=== PATIENT | female | born 1955 | race Caucasian/White ===

== ENCOUNTER 2020-04-14 15:43 | Emergency (ER) | payer OTHER ==
[~2020-04-14 15:43] MED LIST: 0.9% SODIUM CHLORIDE 1000 ML IV BAG IV ONE
[2020-04-14 16:09] LABS: BASOPHILS % (AUTO) 0.3 % (0.0-5.0); EOSINOPHILS % (AUTO) 0.1 % (0.0-8.0); LYMPHOCYTES % (AUTO) 11.4 % (21.0-51.0); MEAN CORPUSCULAR HGB CONC 34.1 g/dL (32.0-36.0); MEAN CORPUSCULAR VOLUME 102.8 fL (79-99); MONOCYTES % (AUTO) 7.3 % (3.0-13.0); NEUTROPHILS % (AUTO) 80.5 % (40.0-77.0); PLATELET COUNT (AUTO) 38 K/uL (130-400); RED CELL DISTRIBUTION WIDTH 14.5 % (11.0-15.5); WHITE BLOOD COUNT (AUTO) 7.6 K/uL (4.8-10.8)
[2020-04-14 16:20] LABS: CREATININE 0.9 mg/dL (0.5-1.5)
[2020-04-14 16:21] LABS: INR 1.38 (0.85-1.15); PARTIAL THROMBOPLASTIN TIME 36.1 SEC (26.3-35.5); PROTHROMBIN TIME 14.7 SEC (9.6-11.6)
[2020-04-14 16:24] LABS: ALBUMIN 2.3 g/dL (3.5-5.0); BILIRUBIN,TOTAL 2.8 mg/dL (0.2-1.0); TOTAL PROTEIN, SERUM 7.8 g/dL (6.0-8.3)
[2020-04-14] MEDS ORDERED: ONDANSETRON HCL 4 MG/2 ML VIAL ONE (16:32)
[2020-04-14] MEDS ORDERED: ACETAMINOPHEN EXTRA STRENGTH 500 MG TABLET ONE (16:33)
[2020-04-14 16:40] LABS: APPEARANCE,URINE CLOUDY (CLEAR); BILIRUBIN,URINE MODERATE (NEGATIVE); COLOR,URINE ORANGE (YELLOW); GLUCOSE, URINE (UA) NEGATIVE (NEGATIVE); KETONES,URINE NEGATIVE (NEGATIVE); LEUKOCYTE ESTERASE ,URINE TRACE (NEGATIVE); NITRATE,URINE NEGATIVE (NEGATIVE); OCCULT BLOOD,URINE LARGE (NEGATIVE); PH,URINE 6.5 (5.0-8.0); PROTEIN,URINE 100 mg/dL (NEGATIVE)
[2020-04-14 17:04] LABS: BACTERIA,URINE Few /HPF (None Seen); RBC,URINE >100 /HPF (0-1); SQUAMOUS EPITHELIAL CELL,UR Rare /HPF (0-2)
== END 2020-04-14 20:59 | disposition home or self-care (01) ==
LOC: EDH 15:43
DX: E86.0 Dehydration (principal); K74.60 Unspecified cirrhosis of liver; R51 Headache; R11.10 Vomiting, unspecified; R31.9 Hematuria, unspecified; D69.59 Other secondary thrombocytopenia; Z20.828 Contact with and (suspected) exposure to other viral communicable diseases; R26.89 Other abnormalities of gait and mobility
CPT/HCPCS: 36415; 70450; 70544; 70551; 71045; 80053; 81001; 82140; 82550; 83690; 83880; 84484; 85025; 85610; 85730; 87426; 93005; 96361; 96374; 99285; J2405; J7030; U0003

== ENCOUNTER 2020-04-19 15:32 | Emergency (ER) | payer OTHER ==
[2020-04-19 16:05] LABS: APPEARANCE,URINE Turbid (CLEAR); BILIRUBIN,URINE Small (NEGATIVE); COLOR,URINE Dark Yellow (YELLOW); GLUCOSE, URINE (UA) Negative (NEGATIVE); KETONES,URINE Negative (NEGATIVE); LEUKOCYTE ESTERASE ,URINE Large (NEGATIVE); NITRATE,URINE Positive (NEGATIVE); OCCULT BLOOD,URINE Large (NEGATIVE); PROTEIN,URINE 300 mg/dL (NEGATIVE)
[2020-04-19 16:18] LABS: BACTERIA,URINE Few /HPF (None Seen); MUCUS,URINE Few LPF (None Seen); SQUAMOUS EPITHELIAL CELL,UR 0-2 /HPF (0-2); WBC,URINE 51-100 /HPF (0-1)
[2020-04-19] MEDS ORDERED: LIDOCAINE HCL 1% 20 ML VIAL ONE (16:30)
[2020-04-19] MEDS ORDERED: CEFTRIAXONE SODIUM 1 GM ONE (16:31)
== END 2020-04-19 16:50 | disposition home or self-care (01) ==
LOC: EDH 15:32
DX: N39.0 Urinary tract infection, site not specified (principal); R03.0 Elevated blood-pressure reading, without diagnosis of hypertension
CPT/HCPCS: 81001; 87077; 87088; 87186; 96372; 99283; J0696

== ENCOUNTER → 2021-01-22 | Outpatient (CLI) | payer OTHER | END | disposition home or self-care (01) | LOC: RAH 08:50 | PROVIDERS: ATTEND Internal Medicine Gastroenterology | DX: K80.20 Calculus of gallbladder without cholecystitis without obstruction (principal); K74.60 Unspecified cirrhosis of liver | CPT/HCPCS: 76700; 93975 ==

== ENCOUNTER → 2023-01-27 | Outpatient (CLI) | payer OTHER | END | disposition home or self-care (01) | LOC: RAH 14:41 | PROVIDERS: ATTEND Internal Medicine | DX: S89.91XA Unspecified injury of right lower leg, initial encounter (principal); X58.XXXA Exposure to other specified factors, initial encounter; Y93.89 Activity, other specified; Y92.89 Other specified places as the place of occurrence of the external cause; Y99.8 Other external cause status | CPT/HCPCS: 73562 ==

== ENCOUNTER → 2023-02-10 | Outpatient (CLI) | payer OTHER | END | disposition home or self-care (01) | LOC: RAH 10:43 | PROVIDERS: ATTEND Internal Medicine | DX: I87.2 Venous insufficiency (chronic) (peripheral) (principal) | CPT/HCPCS: 93970 ==

== ENCOUNTER → 2023-03-03 | Outpatient (CLI) | payer OTHER | END | disposition home or self-care (01) | LOC: RAH 09:16 | PROVIDERS: ATTEND Internal Medicine | DX: M17.0 Bilateral primary osteoarthritis of knee (principal); M16.12 Unilateral primary osteoarthritis, left hip; M85.88 Other specified disorders of bone density and structure, other site | CPT/HCPCS: 73502; 73562 ==

== ENCOUNTER 2024-09-17 06:34 | Observation (INO) | payer OTHER ==
[2024-09-11 10:54] LABS: BASOPHILS # (AUTO) 0.03 K/uL (0.00-0.20); BASOPHILS % (AUTO) 1.1 % (0.0-5.0); EOSINOPHILS # (AUTO) 0.07 K/uL (0.00-0.70); EOSINOPHILS % (AUTO) 2.7 % (0.0-8.0); HEMATOCRIT 37.7 % (36-48); IMMATURE GRANULOCYTE ABSOLUTE 0.01 K/uL (0-1); LYMPHOCYTES # (AUTO) 0.5 K/uL (1.0-4.8); LYMPHOCYTES % (AUTO) 18.3 % (21.0-51.0); MEAN CORPUSCULAR HEMOGLOBIN 32.5 pg (27.0-33.0); MEAN CORPUSCULAR HGB CONC 33.4 g/dL (32.0-36.0); MEAN CORPUSCULAR VOLUME 97.2 fL (79-99); MONOCYTES # (AUTO) 0.2 K/uL (0.1-1.0); NEUTROPHILS # (AUTO) 1.8 K/uL (1.8-7.7); NEUTROPHILS % (AUTO) 69.5 % (40.0-77.0); PLATELET COUNT (AUTO) 61 K/uL (130-400); RED BLOOD CELL COUNT(AUTO) 3.88 MIL/uL (4.00-5.50); RED CELL DISTRIBUTION WIDTH 13.5 % (11.0-15.5); WHITE BLOOD COUNT (AUTO) 2.6 K/uL (4.8-10.8)
[2024-09-11 11:01] VITALS: BP 135/56; PULSE 65; RESP 18; TEMP 97.7
--- NOTE | 2024-09-11 11:01 | EKG ---
[facility] Test Date: 2024-09-11 Test Time: 11:35:05 Pat Name: JOSE LENNON Department: [facility] Room: Gender: F Skimmer Reverberatory: [id number] : 1955 Requested By: PEYMAN GARCIA Order Number: [id number] Reading MD: Kaley Montelongo Measurements Intervals Dixon Rate: 64 P: -7 WA: 184 QRS: -21 QRSD: 91 T: 25 QT: 409 QTc: 424 Interpretive Statements Sinus rhythm Compared to ECG 04/14/2020 16:17:57 No significant changes Electronically Signed On 09-12-2024 17:07:04 SOCCER COMMENTATOR by Kaley Montelongo Please click the below link to view image of tracing.
[2024-09-11 11:12] LABS: ALBUMIN 3.4 g/dL (3.5-5.0); CREATININE 0.8 mg/dL (0.5-1.0); POTASSIUM 4.2 mmol/L (3.5-5.1)
[2024-09-11 12:31] LABS: INR 1.1 (0.85-1.15); PROTHROMBIN TIME 12.2 SEC (9.6-11.6)
[2024-09-11 12:32] LABS: PARTIAL THROMBOPLASTIN TIME 30.2 SEC (26.3-35.5)
[2024-09-11 12:58] LABS: BAND NEUTROPHILS % (MANUAL) 2 % (0-2); EOSINOPHILS % (MANUAL) 4 % (1-6); LYMPHOCYTES % (MANUAL) 18 % (22-44); MAN.DIFF COMMENT-IMPRESSION MANUAL DIFFERENTIAL; MONOCYTES % (MANUAL) 6 % (2-9); PLATELET MORPHOLOGY COMMENT MARKED DECREASE; SEGMENTED NEUTROPHILS % 70 % (40-70); TOTAL CELLS COUNTED 50; WBC MORPHOLOGY TOXIC GRANULATION 1+
--- NOTE | 2024-09-14 13:23 | NUR ---
report dr meredith reviewed cbc. new orders given for type and crossmatch of 2 prbc and one unit of packed platelets dos.
[2024-09-17] VITALS (34 sets, daily range): BP systolic 121–160; BP diastolic 55–112; PULSE 57–80; RESP 13–20; TEMP 97.3–98.4; O2SAT 95–97
[~2024-09-17] VITALS: Ht 175.3 cm; Wt 104.1 kg
[~2024-09-17 06:34] MED LIST changes: -0.9% SODIUM CHLORIDE 1000 ML IV BAG IV ONE; +ASCO100031 PO; +CHOL500051 PO; +CYAN25002 SL; +FOLI0.8T3 PO; +HC2530O TP; +HYDR25SU7 RC; +LACT-441 PO; +MILK175T2 PO; +OMEP40CA21 PO; +POTA99CA PO; +PRIMROSE; +TRIAM15CRM TP
[2024-09-17] MEDS ORDERED: LIDOCAINE PF 100MG/5ML (2%) SYRINGE 5ML ONE ×2 (07:17→09:19)
[2024-09-17] MEDS ORDERED: SUCCINYLCHOLINE CHLORIDE 20 MG/ML 10 ML VIAL ONE ×2 (07:17→09:20)
[2024-09-17] MEDS ORDERED: FENTanyl CITRate PF 50 MCG/1 ML 2ML VIAL ONE ×3 (07:18→09:50)
[2024-09-17] MEDS ORDERED: rocuRONium bROMide 10MG/1ML 5ML VL ONE (07:18)
[2024-09-17] MEDS ORDERED: NEOSTIGMINE METHYLSULFATE 1MG/ML IV ONE (07:18)
[2024-09-17] MEDS ORDERED: ondanSETRON 4MG INJ ONE ×2 (07:18→09:51)
[2024-09-17] MEDS ORDERED: dexaMETHasone SOD PHOSPHATE 10MG/ML 1ML VIAL ONE ×2 (07:18→09:20)
[2024-09-17] MEDS ORDERED: proPOFol 10 MG/ML 20ML VIAL IV ONE (07:18)
[2024-09-17] MEDS ORDERED: GLYCOPYRROLATE 0.2 MG/ML 5 ML VIAL ONE (07:18)
[2024-09-17] MEDS ORDERED: MIDAZOLAM HCL 1 MG/ML 2ML VIAL ONE (07:21)
[2024-09-17] MEDS ORDERED: ROPivacaine 0.5% 5MG/ML 30ML ONE ×3 (07:25→09:46)
[2024-09-17] MEDS ORDERED: ketaMINE 50MG/ML SYRINGE 50 MG/ML DISP.SYRIN ONE (07:46)
[2024-09-17] MEDS ORDERED: ALBUMIN (HUMAN) 5% 250 ML IV ONE (07:47)
[2024-09-17] MEDS: LACTATED RINGERS 1000ML 1,000 ML IV ONE (07:55)
[2024-09-17] MEDS: ceFAZolin SODIUM 2 GM VIAL ONE (07:55)
[2024-09-17] MEDS ORDERED: TRANEXAMIC ACID 1000MG/10ML ONE (08:36)
[2024-09-17] MEDS ORDERED: ketOROlac 30MG VIAL (30MG/ML) ONE (08:36)
[2024-09-17] MEDS: ceFAZolin SODIUM 2 GM VIAL IVPB ONE (09:03)
[2024-09-17] MEDS: 0.9%NACL 1000ML 1,000 ML IV SCH (11:30)
[2024-09-17] MEDS ORDERED: PoTASSium chloRIDE 20MEQ/100ML 100 ML IV PRN (11:30)
[2024-09-17] MEDS ORDERED: DiphenhydrAMINE HCL 50 MG/ML VIAL IVP PRN (11:30)
[2024-09-17] MEDS ORDERED: ondanSETRON 4MG INJ IVP PRN (11:30)
[2024-09-17] MEDS ORDERED: HYDROcodone/APAP 5/325 1 TAB TABLET PO PRN (11:30)
[2024-09-17] MEDS ORDERED: CALCIUM CARB 500MG PO PRN (11:30)
[2024-09-17] MEDS ORDERED: PoTASSium chl 10% ELIXIR 20MEQ 20 MEQ/15 ML UDCUP PO PRN (11:30)
[2024-09-17] MEDS ORDERED: ketOROlac 15MG/ML VIAL (15MG/ML) IV SCH (11:30)
[2024-09-17] MEDS ORDERED: PoTASSium chloRIDE 20MEQ ER 20 MEQ ERTAB PO PRN (11:30)
[2024-09-17] MEDS ORDERED: MEPERIDINE-PF 25 MG/ML SYG ONE (11:34)
[2024-09-17] MEDS: MEPERIDINE-PF 50 MG/ML SYG ONE (11:53)
[2024-09-17] MEDS ORDERED: APPL TP SCH (12:00)
[2024-09-17] MEDS ORDERED: HYDROCORTISONE 2.5% TP SCH (12:00)
[2024-09-17] MEDS: FAMOTIDINE 20MG VIAL IV ONE (12:10)
[2024-09-17] MEDS: ketOROlac 15MG/ML VIAL (15MG/ML) ONE (12:11)
--- NOTE | 2024-09-17 12:30 | HMCIMG ---
KNEE/PATELLA 1-2VWS RT REASON: S/P RT TKA SURGERY TECHNIQUE: 2 views were obtained. FINDINGS: There is a total knee joint prosthesis in place. There is normal appearance of the remaining bone. There are surgical changes in the soft tissues. There are no foreign bodies. IMPRESSION: 1. Documentation of right knee total joint prosthesis placement.
[2024-09-17] MEDS: CYCLOBENZAPRINE HCL 10 MG TABLET PO PRN (13:10)
[2024-09-17] MEDS: HYDROcodone/APAP 5/325 1 TAB TABLET ONE (13:10)
[2024-09-17] MEDS ORDERED: GABApentin 100 MG CAPSULE PO SCH (14:00)
--- NOTE | 2024-09-17 15:14 | OP ---
Operative Note: DATE OF PROCEDURE: 09/17/24 PREOPERATIVE DIAGNOSIS: Right knee osteoarthritis. POSTOPERATIVE DIAGNOSIS: Right knee osteoarthritis. PROCEDURE PERFORMED: Right knee total knee arthroplasty. SURGEON: Jemima Kessler MD JAVASCRIPT SOFTWARE ENGINEER: Hanny Fishman. ANESTHESIA: General with adductor canal block. ANESTHESIA: SKYLER Cha. ESTIMATED BLOOD LOSS: 50cc. COMPLICATIONS: None. DRAINS: None. SPECIMENS REMOVED: resected bone. Not sent to pathology. IMPLANTS: A[employer]hew Journey II BCS size 6 Oxinium femur, size 5 tibial base plate, 35 mm patella, 9 mm polyethylene STATEMENT OF MEDICAL NECESSITY: The patient is a 69-year-old female who suffers from right knee osteoarthritis failing conservative management. After discussion of the risks, benefits, and alternatives with the patient, they voluntarily agreed to undergo the aforementioned procedure. DESCRIPTION OF PROCEDURE: Patient was properly identified in the preoperative holding area. Surgical site marking was verified and surgery consent reviewed. The patient was then taken to the operating room and placed in supine position on the OR table. After induction of general anesthesia, preoperative antibiotics were given, all bony prominences were well-padded, and a well padded tourniquet was applied but not inflated at this time. The right lower extremity was then prepped and draped in usual sterile fashion. Surgical time out was done verifying correct surgery, side, site, and location to be performed. We then began the procedure by exsanguinating the limb using an Esmarch and inflating the tourniquet to 350 mmHg. At this point, we made an anterior midline incision using a 10 blade, coming down sharply the level of the fascia. Skin flaps were elevated medially and laterally. We then obtained a clean 10 blade and performed a standard medial parapatellar arthrotomy. We excised the infrapatellar fat pad. We performed our soft tissue releases off of the tibia. We transected the ACL and removed the anterior portion of the medial & lateral meniscus. We then brought the knee into hyperflexion with the patella everted. We used our entry reamer to enter the femoral canal. We then placed our intramedullary cutting guide for our distal femoral cutting block. We then performed our distal femoral osteotomy ensuring appropriate rotation and removed the bony wafer. We then removed these pins and block and then used jig 2 to size the distal femur with the after mentioned size found. We then placed our 5-in-1 cutting block in 3 degrees of external rotation and took our 5 cuts ensuring to protect the patellar tendon and the collateral ligaments. We then removed the cutting block and our bony fragments using a curved osteotome. We then placed our PCL retractor subluxating the tibia anteriorly. Using an extra medullary tibial cutting guide, we hung the block for our proximal tibial cut taking 2 mm off the more diseased portion. Prior to pinning this block in place, we ensured appropriate varus/valgus alignment and posterior slope similar to the mechoopda slope of the patient's knee. We then performed our proximal tibial osteotomy and removed the bony wafer using Bovie electrocautery to release any remaining soft tissue attachments. We then used our tibial sizing paddle and checked once more for varus & valgus alignment and found this to be appropriate. At this point, we pinned our tibial paddle in place. We then removed the PCL retractor and subluxated the tibia posteriorly while we placed our femoral trial component. We then finished preparing the notch with the reamer and box chisel. The notch portion of the trial femoral component was then placed. A posterior stabilized polyethylene, size 9 trial was placed. The knee was then taken through range of motion and found to have stable full range of motion. We then placed a bump under the ankle and everted the patella to perform our freehand cut of the undersurface the patella. We then sized our patella and reamed to the lug holes for this. We placed our trial patellar component and begin to take the knee through range of motion. The patella had lateral tracking and therefore a lateral release was performed. At this point we began removing our trial components and punched the tibial keel prior to removing our tibial trial component. Final components were opened and cement was mixed on the back table while we injected local cocktail in the posterior capsule. We then thoroughly irrigated out the bone and dried the bony surfaces. We cemented our tibial component in place ensuring to remove excess cement and placed our trial polyethylene. We then cemented our femoral component in place once again taking time to ensure excess cement was removed leg was brought into full extension to help squeeze the excess cement from around the femoral component. We then brought the knee back in a flexion to remove this portion of the cement at this point we placed the ankle in a bump thoroughly irrigated off the patellar component and cemented our patellar component in standard fashion again removing excess cement. While we waited for the cement to cure, we thoroughly irrigated out the wound with normal saline. Once our cement had cured, we took the knee through a range of motion and found full and stable range of motion. We then elected to use the size 9 polyethylene and removed our trial polyethylene. We impacted our final polyethylene component in place in standard fashion and took the knee through a range of motion check once more. This was satisfactory so we began to repair the arthrotomy using #1 Vicryl in interrupted [id number] fashion. Subcutaneous tissue was repaired using 2-0 Vicryl. Running subcuticular 3-0 Monocryl stitch with Dermabond placed over this for the skin. We then applied a foam barrier dressing and a pressure dressing consisting of 4 x 4's fluffs and an Edmund wrap. The tourniquet was then deflated. Patient was awakened from anesthesia, and they were taken to the recovery room in stable condition. JEMIMA KESSLER MD Sep 17, 2024 15:14
--- NOTE | 2024-09-17 15:18 | DS ---
Discharge Summary Hospital Course Summary: The patient was admitted to the hospital postoperatively on 09/17/2024 after undergoing right total knee arthroplasty. They did well with routine postoperative pain control. They worked well with physical therapy. They developed some acute blood loss anemia but remained asymptomatic. The hospital course was otherwise uncomplicated. They were subsequently able to be discharged on postoperative day 2 once discharge arrangements were made with senior living [facility]. Corn Sheller Operator(s): none Procedure(s): Right total knee arthroplasty, 09/17/2024 Assessment/Plan: ASSESSMENT: Status post right total knee arthroplasty PLAN: See discharge instructions Home Medications: Active Scripts Tramadol Hcl (Tramadol HCl) 50 Mg Tablet, 50 MG PO Q6H PRN for MILD PAIN (1-3), #28 TAB 0 Refills Prov:PEYMAN GARCIA MD 09/19/24 Reported Medications Potassium Citrate (Potassium) 99 Mg Capsule, 99 MG PO AM, CAP 09/11/24 Ascorbic Acid (Vitamin C) 1,000 Mg Tablet, 1000 MG PO AM, TAB 09/11/24 Cyanocobalamin (Vitamin B-12) (Vitamin B-12) 2,500 Mcg Tab.subl, 2500 MCG SL AM, TAB.SL 09/11/24 Folic Acid (Folic Acid) 0.8 Mg Tablet, 800 MG PO AM, TAB 09/11/24 Cholecalciferol (Vitamin D3) (Vitamin D3) 125 Mcg (5000 Unit) Capsule, 125 MCG PO AM, CAP 09/11/24 Milk Thistle Seed Extract (Milk Thistle) 175 Mg Tablet, 175 MG PO AM, TAB 09/11/24 [[place]] No Conflict Check, 1 TAB AM 09/11/24 Hydrocortisone Acetate (Hydrocortisone Acetate) 25 Mg Supp.rect, 25 MG RC AD for HEMRRHOIDS, EA 09/11/24 Hydrocortisone (Hydrocortisone 2.5% Oint) 2.5 % Oint, 1 APPL TP AD, APPL 09/11/24 Triamcinolone Acetonide (Triamcinolone Acetonide) 0.1 % Cream.gm., 15 GM TP AD for RASH, APPL 09/11/24 Omeprazole (Omeprazole) 40 Mg Capsule.dr, 40 MG PO AM, CAP 09/11/24 Lactulose (Lactulose) 10 Gram/15 Ml Solution, 10 GM PO AM, ML 09/11/24 PEYMAN GARCIA MD Sep 17, 2024 15:18
--- NOTE | 2024-09-17 16:15 | NUR ---
PATIENT ARRIVED TO UNIT FROM OR. PATIENT AWAKE AND ALERT WITH NO S/S OF DISTRESS NOTED. SCD'S IN PLACE ICE PACKS TO RT KNEE AND POST OP VITALS INITIATED. BED IN LOWEST POSITION AND CALL LIGHT IN REACH
--- NOTE | 2024-09-17 16:30 | NUR ---
ORTHO COORDINATOR: PHYSICAL THERAPY AT BEDSIDE. DEFERRED TEACHING.
[2024-09-17] MEDS: ceFAZolin SODIUM 2 GM VIAL IVP SCH (17:03)
[2024-09-17] MEDS: ketOROlac 15MG/ML VIAL (15MG/ML) IV PRN (17:04)
--- NOTE | 2024-09-17 17:49 | NUR ---
PT eval completed. Pt is 7/10 pain prior to eval. Pt wishes to transfer to [facility]. Eval completed. Pt is max assist x 2 for stand and pivot. Pt knee renetta multiple time during transfer. Pt able to urinate. Pt back to bed with call padilla, fall alarm, SCD and ice. Education provided on POC, DC plan, pain management and fall risk. Pt voices understanding. Spoke to nurse that patient will need a purewick over night as she uses the restroom 4-5 times per night and needs 2 person max transfer. Pt is fall risk.
[2024-09-17] MEDS: traMADol HCL 50 MG TABLET PO PRN (20:14)
[2024-09-17] MEDS: doCUSate SODIUM 100 MG CAP PO SCH (20:14)
[2024-09-18] VITALS: BP 141/67; PULSE 67; RESP 18; TEMP 98.6
[2024-09-18 04:00] VITALS: BP 106/47; PULSE 74; RESP 17; TEMP 98.2
[2024-09-18 05:35] LABS: HEMATOCRIT 29.8 % (36-48); MEAN CORPUSCULAR HEMOGLOBIN 31.8 pg (27.0-33.0); MEAN CORPUSCULAR HGB CONC 33.9 g/dL (32.0-36.0); MEAN CORPUSCULAR VOLUME 93.7 fL (79-99); RED BLOOD CELL COUNT(AUTO) 3.18 MIL/uL (4.00-5.50); RED CELL DISTRIBUTION WIDTH 13.2 % (11.0-15.5); WHITE BLOOD COUNT (AUTO) 6.5 K/uL (4.8-10.8)
[2024-09-18 06:24] LABS: CREATININE 0.7 mg/dL (0.5-1.0); POTASSIUM 4.8 mmol/L (3.5-5.1)
[2024-09-18 08:00] VITALS: BP 140/67; PULSE 69; RESP 18; TEMP 98.4; O2SAT 96
--- NOTE | 2024-09-18 08:18 | PN ---
Ortho postop day one. Patient is out of bed seated in the chair resting comfortably. Reporting adequate pain control. Vital signs have been stable she has been afebrile. Noted to have a drop in hemoglobin and hematocrit as expected after TKA. Patient is asymptomatic. We will address per protocol as necessary. Edmund bandage his already been removed from the operative site and the anterior dressing is intact. The gastrocnemius a soft nontender. Negative Homans. She has alternating extending and flexing her operative extremity on footstool. Performing incentive spirometry as instructed with returned demonstration that is adequate. Voiding on her own. Operative findings discussed with the patient. Therapy was not able to ambulate her but did get her at the bedside and is pending further physical therapy this morning. Anticipated discharge goal is [facility]. Assessment: Status post right total knee arthroplasty. Asymptomatic acute postoperative blood loss anemia. Plan: Continue Dr. Kessler's TKA protocol and discharge planning. Asymptomatic acute postoperative blood loss anemia addressed with the protocol Vitals/Labs Vital Signs Date Time Temp Pulse Resp B/P (MAP) Pulse Ox O2 Delivery O2 Flow Rate FiO2 09/18/24 04:00 98.2 74 17 106/47 94 Room Air 09/17/24 20:00 0 21 Laboratory Tests 09/18/24 04:55 Medications Current Medications Cefazolin Sodium 2 gm STK-MED ONCE .ROUTE; Start 09/17/24 at 06:51; Stop 09/17/24 at 06:51; Status DC Lactated Ringer's 1,000 ml @ As Directed STK-MED ONCE IV Last administered on 09/17/24at 07:55; Start 09/17/24 at 06:51; Stop 09/17/24 at 06:51; Status DC Lidocaine HCl 100 mg STK-MED ONCE .ROUTE; Start 09/17/24 at 07:17; Stop 09/17/24 at 07:23; Status DC Succinylcholine Chloride 200 mg STK-MED ONCE .ROUTE; Start 09/17/24 at 07:17; Stop 09/17/24 at 07:23; Status DC Propofol 200 mg STK-MED ONCE IV; Start 09/17/24 at 07:18; Stop 09/17/24 at 07:23; Status DC Dexamethasone Sodium Phosphate 10 mg STK-MED ONCE .ROUTE; Start 09/17/24 at 07:18; Stop 09/17/24 at 07:23; Status DC Glycopyrrolate 1 mg STK-MED ONCE .ROUTE; Start 09/17/24 at 07:18; Stop 09/17/24 at 07:23; Status DC Neostigmine Methylsulfate 10 mg STK-MED ONCE IV; Start 09/17/24 at 07:18; Stop 09/17/24 at 07:23; Status DC Ondansetron HCl 4 mg STK-MED ONCE .ROUTE; Start 09/17/24 at 07:18; Stop 09/17/24 at 07:23; Status DC Rocuronium Pawling 50 mg STK-MED ONCE .ROUTE; Start 09/17/24 at 07:18; Stop 09/17/24 at 07:23; Status DC Fentanyl Citrate 100 mcg STK-MED ONCE .ROUTE; Start 09/17/24 at 07:18; Stop 09/17/24 at 07:23; Status DC Midazolam HCl 2 mg STK-MED ONCE .ROUTE; Start 09/17/24 at 07:21; Stop 09/17/24 at 07:23; Status DC Ropivacaine 150 mg STK-MED ONCE .ROUTE; Start 09/17/24 at 07:25; Stop 09/17/24 at 07:25; Status DC Famotidine 20 mg STK-MED ONCE IV; Start 09/17/24 at 07:44; Stop 09/17/24 at 07:45; Status DC Ketamine HCl 50 mg STK-MED ONCE .ROUTE; Start 09/17/24 at 07:46; Stop 09/17/24 at 07:46; Status DC Albumin Human 250 ml @ As Directed STK-MED ONCE IV; Start 09/17/24 at 07:47; Stop 09/17/24 at 07:47; Status DC Tranexamic Acid 1,000 mg STK-MED ONCE .ROUTE; Start 09/17/24 at 08:36; Stop 09/17/24 at 08:37; Status DC Ketorolac Tromethamine 30 mg STK-MED ONCE .ROUTE; Start 09/17/24 at 08:36; Stop 09/17/24 at 08:37; Status DC Ropivacaine 150 mg STK-MED ONCE .ROUTE; Start 09/17/24 at 08:37; Stop 09/17/24 at 08:37; Status DC Lidocaine HCl 100 mg STK-MED ONCE .ROUTE; Start 09/17/24 at 09:19; Stop 09/17/24 at 09:20; Status DC Succinylcholine Chloride 200 mg STK-MED ONCE .ROUTE; Start 09/17/24 at 09:20; Stop 09/17/24 at 09:20; Status DC Dexamethasone Sodium Phosphate 10 mg STK-MED ONCE .ROUTE; Start 09/17/24 at 09:20; Stop 09/17/24 at 09:20; Status DC Fentanyl Citrate 100 mcg STK-MED ONCE .ROUTE; Start 09/17/24 at 09:21; Stop 09/17/24 at 09:21; Status DC Cefazolin Sodium 2 gm STK-MED ONCE IVPB Last administered on 09/17/24at 09:03; Start 09/17/24 at 09:03; Stop 09/17/24 at 09:40; Status DC Ropivacaine 150 mg STK-MED ONCE IJ Last administered on 09/17/24at 09:10; Start 09/17/24 at 09:10; Stop 09/17/24 at 09:40; Status DC Ketorolac Tromethamine 30 mg STK-MED ONCE IVP Last administered on 09/17/24at 09:11; Start 09/17/24 at 09:11; Stop 09/17/24 at 09:40; Status DC Tranexamic Acid 1,000 mg STK-MED ONCE IV Last administered on 09/17/24at 09:20; Start 09/17/24 at 09:20; Stop 09/17/24 at 09:40; Status DC Ropivacaine 150 mg STK-MED ONCE .ROUTE; Start 09/17/24 at 09:46; Stop 09/17/24 at 09:46; Status DC Fentanyl Citrate 100 mcg STK-MED ONCE .ROUTE; Start 09/17/24 at 09:50; Stop 09/17/24 at 09:50; Status DC Ondansetron HCl 4 mg STK-MED ONCE .ROUTE; Start 09/17/24 at 09:51; Stop 09/17/24 at 09:52; Status DC Sodium Chloride 1,000 ml @ 100 mls/hr Q10H IV; Start 09/17/24 at 11:30; Stop 09/18/24 at 11:29 Polyethylene Glycol 17 gm DAILY PO; Start 09/18/24 at 09:00; Stop 10/18/24 at 08:59 Bisacodyl 10 mg DAILY PRN RC; Start 09/20/24 at 11:30; Stop 10/20/24 at 11:29 Ketorolac Tromethamine 15 mg Q6H PRN IV; Start 09/18/24 at 11:30; Stop 09/17/24 at 16:46; Status DC Ferrous Fumarate 324 mg DAILY PRN PO; Start 09/17/24 at 11:30; Stop 10/17/24 at 11:29 Ondansetron HCl 4 mg Q6H PRN IVP; Start 09/17/24 at 11:30; Stop 10/17/24 at 11:29 Calcium Carbonate 500 mg Q12H PRN PO; Start 09/17/24 at 11:30; Stop 10/17/24 at 11:29 Diphenhydramine HCl 25 mg Q6H PRN IVP; Start 09/17/24 at 11:30; Stop 10/17/24 at 11:29 Cefazolin Sodium 2 gm Q8H IVP Last administered on 09/17/24at 23:59; Start 09/17/24 at 16:30; Stop 09/18/24 at 00:31; Status DC Cyclobenzaprine HCl 5 mg Q8H PRN PO Last administered on 09/17/24at 13:10; Start 09/17/24 at 11:30; Stop 10/17/24 at 11:29 Gabapentin 100 mg TID PO; Start 09/17/24 at 14:00; Stop 09/17/24 at 11:24; Status DC Ketorolac Tromethamine 15 mg Q8H IV; Start 09/17/24 at 11:30; Stop 09/17/24 at 11:23; Status DC Docusate Sodium 100 mg BID PO Last administered on 09/17/24at 20:14; Start 09/17/24 at 21:00; Stop 10/17/24 at 20:59 Potassium Chloride 100 ml @ 100 mls/hr AD PRN IV; Start 09/17/24 at 11:30; Stop 10/17/24 at 11:29 Potassium Chloride 20 meq AD PRN PO; Start 09/17/24 at 11:30; Stop 10/17/24 at 11:29 Potassium Chloride 20 meq AD PRN PO; Start 09/17/24 at 11:30; Stop 10/17/24 at 11:29 Tramadol HCl 50 mg Q6H PRN PO Last administered on 09/17/24at 20:14; Start 09/17/24 at 11:30; Stop 09/22/24 at 11:29 Acetaminophen/ Hydrocodone Bitart Q4H PRN PO; Start 09/17/24 at 11:30; Stop 09/17/24 at 11:31; Status DC Miscellaneous Medication 1,000 mg AM PO; Start 09/18/24 at 09:00; Stop 09/17/24 at 11:26; Status DC Home Med Cholecalciferol (Vitamin D3) 125 MCG AM PO; Start 09/18/24 at 09:00; Stop 10/18/24 at 08:59 Home Med AM SL; Start 09/18/24 at 09:00; Stop 10/18/24 at 08:59 Home Med Folic Acid 800 MG AM PO; Start 09/18/24 at 09:00; Stop 10/18/24 at 08:59 Home Med AD TP; Start 09/17/24 at 12:00; Stop 10/17/24 at 11:59 Lactulose 10 gm AM PO; Start 09/18/24 at 09:00; Stop 10/18/24 at 08:59 Home Med Milk Thistle S... AM PO; Start 09/18/24 at 09:00; Stop 10/18/24 at 08:59 Pantoprazole Sodium 40 mg DAILY PO; Start 09/18/24 at 09:00; Stop 10/18/24 at 08:59 Miscellaneous Medication 99 mg AM PO; Start 09/18/24 at 09:00; Stop 09/17/24 at 11:38; Status DC Home Med [place] 1 TAB AM PO; Start 09/18/24 at 09:00; Stop 10/18/24 at 08:59 Meperidine HCl 25 mg STK-MED ONCE .ROUTE; Start 09/17/24 at 11:34; Stop 09/17/24 at 11:34; Status DC Meperidine HCl 50 mg STK-MED ONCE .ROUTE Last administered on 09/17/24at 11:53; Start 09/17/24 at 11:47; Stop 09/17/24 at 11:47; Status DC Ketorolac Tromethamine 15 mg STK-MED ONCE .ROUTE Last administered on 09/17/24at 12:11; Start 09/17/24 at 12:10; Stop 09/17/24 at 12:10; Status DC Acetaminophen/ Hydrocodone Bitart 1 tab STK-MED ONCE .ROUTE Last administered on 09/17/24at 13:10; Start 09/17/24 at 13:07; Stop 09/17/24 at 13:08; Status DC Ketorolac Tromethamine 15 mg Q6H PRN IV Last administered on 09/17/24at 23:59; Start 09/17/24 at 17:00; Stop 09/22/24 at 16:59 MORENO COLLADO AUDIO VISUAL COORDINATOR Sep 18, 2024 08:18
[2024-09-18] MEDS: PANTOPrazole 40 MG TAB DR PO SCH (08:51)
[2024-09-18] MEDS: polyETHYLene GLYCol 3350 17 GM POWD.PACK PO SCH (08:51)
[2024-09-18] MEDS: LACTULOSE 20 GM/30 ML UDCUP PO SCH (08:53)
[2024-09-18] MEDS: Cholecalciferol (Vitamin D3) 125 MCG PO SCH (09:00)
[2024-09-18] MEDS: PRIMROSE PO SCH (09:00)
[2024-09-18] MEDS ORDERED: NON-FORMULARY MEDICATION 1 EACH (Ascorbic Acid (Vitamin C) 1,000 MG) PO SCH (09:00)
[2024-09-18] MEDS: FOLIC ACID 800 MG PO SCH (09:00)
[2024-09-18] MEDS: CYANOCOBALAMIN 2500 MCG SL SCH (09:00)
[2024-09-18] MEDS ORDERED: POTASSIUM CITRATE 99 MG PO SCH (09:00)
[2024-09-18] MEDS ORDERED: ketOROlac 15MG/ML VIAL (15MG/ML) IV PRN (11:30)
--- NOTE | 2024-09-18 11:30 | NUR ---
DCP CM MET WITH PT THIS MORNING ASSESSMENT DONE. PATIENT IS INDEPENDENT PRIOR TO SURGERY, LIVES AT HOME WITH A ROOMMATE. PATIENT HAS ACCESS TO [facility] IF NEEDED. FEELS SAFE TO GO BACK, ARRANGES OWN NEEDS, ROOMMATE UNABLE TO ASSIST WITH TRANSPORTATION AT THIS TIME. PT REQUESTING REHABILITATION PLACEMENT AT [facility], CONSENT SIGNED JOSEPH. DCP SNF ONCE APPROVED. TEMI SENT ORDER, CLINICALS, PT, PASRR TO [facility] VIA SECURE FAX AND EMAIL, MALINA ALSO GIVEN A HEADS UP VIA SECURE EMAIL. CM SPOKE TO ELVIA MADE AWARE OF NEW REFERRAL, WILL COME EVALUATE PT, AWARE DCP ONCE APPROVED VIA FACILITY VAN. PT PENDING APPROVAL AND ACCEPTANCE. PRIMARY NURSE APRIL MADE AWARE. DR GARCIA UPDATED. CM TO CONTINUE TO FOLLOW UP. Addendum: 09/18/24 at 1355 by SUSHILA ULLOA LVN CM Amended: Links added.
[2024-09-18 11:57] VITALS: BP 133/60; PULSE 72; RESP 18; TEMP 98.3
--- NOTE | 2024-09-18 13:15 | NUR ---
ORTHO COORDINATOR: TEACHING REGARDING DVT AND PNEUMONIA PREVENTION, PAIN EXPECTATIONS, PAIN MANAGEMENT. PATIENT IN BED. REPORTS EATING LUNCH IN CHAIR. PATIENT PAIN CONTROLLED. REVIEWED NUMERIC PAIN SCALE, PATIENT REMINDED SHE MUST REQUEST PAIN MEDICATION. INFORMED HER PAIN MEDICATION AVAILABLE TO TREAT PAIN FROM 1-10. PATIENT VERBALIZED UNDERSTANDING. B SCD SLEEVES IN PLACE AND FUNCTIONING. INCENTIVE SPIROMETER AT BEDSIDE. PATIENT INSTRUCTED TO PERFORM EVERY 2 HOURS, 10 TIMES OR DURING COMMERCIALS WHILE WATCHING TV. PATIENT VERBALIZED UNDERSTANDING. PATIENT RETURN DEMONSTRATED FOOT FLEXION AND EXTENSION EXERCISES. PATIENT EXPRESSES DESIRE TO BE DISCHARGED TO REHAB FACILITY. NO ADDITIONAL QUESTIONS/CONCERNS AT THIS TIME.
[2024-09-18 16:00] VITALS: BP 136/71; PULSE 81; RESP 18; TEMP 98.5
[2024-09-18 20:00] VITALS: BP 137/56; PULSE 70; RESP 17; TEMP 98.4; O2SAT 96
[2024-09-19] VITALS: BP 146/57; PULSE 88; RESP 17; TEMP 98.3
[2024-09-19 04:00] VITALS: BP 147/65; PULSE 82; RESP 18; TEMP 99
[2024-09-19 08:00] VITALS: O2SAT 95
[2024-09-19 08:16] VITALS: BP 153/77; PULSE 88; RESP 18; TEMP 98.4
[2024-09-19] MEDS: FERROUS FUMARATE 324 MG TABLET PO PRN (08:58)
[2024-09-19 11:08] VITALS: BP 147/78; PULSE 86; RESP 18; TEMP 98.6
--- NOTE | 2024-09-19 15:30 | NUR ---
ORTHO COORDINATOR: REINFORCED TEACHING. PATIENT IN BED. REINFORCED NEED FOR PATIENT TO PREMEDICATE PRIOR PHYSICAL THERAPY AND DURING PERIODS OF HIGH ACTIVITY. PATIENT VERBALIZED UNDERSTANDING. NO ADDITIONAL QUESTIONS/CONCERNS AT THIS TIME.
[2024-09-19 16:30] VITALS: BP 148/76; PULSE 80; RESP 16; TEMP 98.4
--- NOTE | 2024-09-19 16:50 | NUR ---
CM NOTE: [facility] APPROVAL CM SPOKE TO ELVIA W/[facility], PT HAS APPROVAL, AWARE PT WILL NEED FACILITY VAN FOR TRANSPORT. PRIMARY NURSE PERCY MADE AWARE. DR GARCIA UPDATED. CM TO CONTINUE TO FOLLOW UP.
[2024-09-19] MEDS ORDERED: TRAM50TA4 PO (18:16)
[2024-09-19] MEDS ORDERED: ASPI-1012 PO (18:16)
[2024-09-19] MEDS ORDERED: CYCL-309 PO (18:16)
[2024-09-19] MEDS ORDERED: DOCU-116 PO (18:16)
[2024-09-20] MEDS ORDERED: BisaCODYL 10 MG SUPP.RECT RC PRN (11:30)
== END 2024-09-19 18:55 ==
LOC: DAH 06:34 → DAHIP 06:35 → 4AH 16:10
PROVIDERS: ADMIT Student in an Organized Health Care Education/Training Program; ATTEND Student in an Organized Health Care Education/Training Program
DX: M17.11 Unilateral primary osteoarthritis, right knee (principal); G89.18 Other acute postprocedural pain; D62 Acute posthemorrhagic anemia; K21.9 Gastro-esophageal reflux disease without esophagitis; Z79.899 Other long term (current) drug therapy; Z88.5 Allergy status to narcotic agent
CPT/HCPCS: 82040; 80048 ×2; 85025; 85610; 85730; 84134; 86140; 36415 ×3; 93005; 87641; 64447; 27447; 96374; 96376 ×3; 96375; 86850; 86900; 86901; 86923; 73560; 97161; 97530 ×7; 85027; 97116 ×4; G0378 ×47; A4223 ×2; A4663; P9045; J7120; J3490 ×6; J3010 ×3; J1100 ×2; J0330; J2250; J2704; J2405 ×2; J1885 ×8; J2710; J2175 ×2; J2795 ×4; J0690 ×4; C1713 ×2; C1776 ×2; A4649 ×2; A4930; A6255; A5120; A4215; A4222; A4221; A4216; J2003